=== PATIENT | female | born 1940 | race Caucasian/White ===

== ENCOUNTER 2021-12-21 15:25 | Emergency (ER) | payer OTHER ==
[~2021-12-21] VITALS: Ht 152.4 cm; Wt 60.3 kg
[2021-12-21] MEDS ORDERED: ATENOLOL25 MG PO (15:38)
[2021-12-21] MEDS ORDERED: CEPHALEXIN500 MG PO (15:38)
[2021-12-21] MEDS ORDERED: ALPRAZOLAM0.25 MG PO (15:38)
[2021-12-21] MEDS ORDERED: SIMVASTATIN20 MG PO (15:39)
[2021-12-21] MEDS ORDERED: LISINOPRIL20 MG PO (15:39)
[2021-12-21] MEDS ORDERED: CHILDREN'S ASPI81 MG PO (15:39)
[2021-12-21] MEDS ORDERED: AMLODIPINE BESYL5 MG PO (15:39)
[2021-12-22] MEDS ORDERED: MOBIC15 MG PO (00:40)
[2021-12-22] MEDS ORDERED: NORFLEX100MG PO (00:40)
== END 2021-12-22 00:54 ==
LOC: ER 15:25
DX: S39.82XA Other specified injuries of lower back, initial encounter (principal); W18.2XXA Fall in (into) shower or empty bathtub, initial encounter; Y93.89 Activity, other specified; Y92.091 Bathroom in other non-institutional residence as the place of occurrence of the external cause; M54.59 Other low back pain; I10 Essential (primary) hypertension; Z88.0 Allergy status to penicillin; Z88.5 Allergy status to narcotic agent; M43.16 Spondylolisthesis, lumbar region